=== PATIENT | male | born 1960 | race Caucasian/White ===

== ENCOUNTER → 2016-10-02 | Day surgery (SDC) | payer OTHER, MEDICAID ==
[~2016-10-02] MED LIST: IOPAMIDOL (ISOVUE-M 300) 15 ML VIAL IV ONE; MIDAZOLAM 2 MG/2 ML VIAL ONE; TRIAMCINOLONE ACETONIDE 200 MG/5 ML MDV IM ONE; fentaNYL 100 MCG/2 ML INJ ONE; oxyCODONE IR 15 MG TAB PO ONE
--- NOTE | 2016-10-02 19:52 | IR ---
Lumbar epidural steroid injection History: Back pain, scoliosis, fusion surgery. Consent: Risks and benefits of the procedure were discussed in detail, and informed consent was obta ined. Medications: Intravenous conscious sedation and analgesia were given under my supervision. Vital sign s, pulse oximetry, and electrocardiogram were monitored. The patient received 2 milligrams of Versed and 100 micrograms of fentanyl intravenously. Technique: With the patient prone, the low back was prepped and draped in sterile fashion. 1% Xyloca ine was used for local anesthetic. Using multiplanar fluoroscopic guidance, an 18-gauge Touhy needle was inserted into the back of the spinal canal via the L3-L4 interlaminar space. Epidural position wa s confirmed with 2 mL of Isovue-M 300. Spot images were obtained before and after injection of 2 mL o f Kenalog (80 mg) and 3 mL of preservative-free 1% Xylocaine. After a brief observation, the patient was allowed to leave the department. Fluoroscopy time: 0.7 minutes. Estimated exposure in milliGray: 32.4. Epidurogram: Eccentric leftward epidural contrast is found at L3-L4. Scoliosis and mature multilevel fusion are similar to previous images of July 27, 2015, and November 24, 2014. Impression: Lumbar epidural injection of long-acting steroid and rapid-acting anesthetic via L3-L4. - - - - - - - - - - - - - - - - - - - - - - - - - - - - - - - - - - - - - - - - - - - - (PQRS Measures: Current medications were listed in the medical record, including all known prescript ions, [id number] medications, herbal medications, and nutritional supplements. Tobacco Use: Non e. The patient quit smoking 8 months ago. Prophylactic antibiotic: Unnecessary. VTE prophylaxis: Unnecessary.)
== END | disposition home or self-care (01) ==
LOC: FIMAGING 11:56
PROVIDERS: ATTEND Clinical Nurse Specialist
PROC: 3E0S33Z Introduction of Anti-inflammatory into Epidural Space, Percutaneous Approach (ICD-10-PCS; principal; 2016-10-02 13:43)
DX: M51.36 Other intervertebral disc degeneration, lumbar region (principal); Z98.1 Arthrodesis status; Z87.891 Personal history of nicotine dependence; Z21 Asymptomatic human immunodeficiency virus [HIV] infection status
CPT/HCPCS: J2250; J3010; J3301; Q9967

== ENCOUNTER 2017-11-18 12:10 | Day surgery (SDC) | payer OTHER, MEDICAID ==
[2017-11-18] MEDS ORDERED: MEPERIDINE 25 MG/ML SYR IVP PRN (12:38)
[2017-11-18] MEDS ORDERED: MIDAZOLAM 2 MG/2 ML VIAL IVP PRN (12:38)
[2017-11-18] MEDS ORDERED: NALOXONE HCL 0.4 MG/ML INJ IVP PRN (12:38)
[2017-11-18] MEDS ORDERED: FLUMAZENIL 0.5 MG/5 ML MDV IVP PRN (12:38)
[2017-11-18] MEDS ORDERED: ALTEPLASE 2 MG VIAL IVP PRN (12:38)
[2017-11-18] MEDS ORDERED: GLUCAGON HCL 1 MG VIAL IVP PRN (12:38)
[2017-11-18] MEDS ORDERED: fentaNYL 100 MCG/2 ML INJ IVP PRN (12:38)
[2017-11-18] MEDS ORDERED: PROTAMINE SULFATE 50 MG/5 ML VIAL IVP PRN (12:38)
[2017-11-18] MEDS ORDERED: HEPARIN 10,000 UNIT/10 ML MDV (1,000 UNIT/ML) IVP PRN (12:38)
[2017-11-18] MEDS ORDERED: NS 1,000 ML IV SCH (12:45)
[2017-11-18] MEDS ORDERED: IOPAMIDOL (ISOVUE-M 300) 15 ML VIAL ONE (13:04)
[2017-11-18] MEDS ORDERED: TRIAMCINOLONE ACETONIDE 200 MG/5 ML MDV IM ONE (13:04)
--- NOTE | 2017-11-18 13:13 | PDPROPOC ---
Sedation Plan of Care Sedation Plan of Care: vital signs stable, mental status noted, patient educated of risks, benefits, alternatives, patient can tolerate sedation ASA Classification: ASA 2 Planned drugs: fentanyl, midazolam Mallampati Score: Class 1 Mallampati Reference Image: Patient passed 3-3-2 rule?: Yes
--- NOTE | 2017-11-18 13:16 | PDGENHP ---
History & Physical Chief Complaint: RECURRENT LBP History of Present Illness: HAS BACK INJECTIONS ABOUT Q4 MONTHS Pertinent Past, Social, Family History: CONTINUED LBP, HIV POSITIVE Relevant Physical Exam: IN NO DISTRESS. Cardiorespiratory Assessment: RRR, CTA
[2017-11-18 13:56] VITALS: PULSE 102; RESP 16
[2017-11-18 14:15] VITALS: TEMP 97.5
[2017-11-18 14:48] VITALS: BP 102/74; O2SAT 93
[2017-11-18] MEDS ORDERED: LIDOCAINE 1% 300 MG/30 ML SDV ONE (15:29)
== END 2017-11-18 15:19 | disposition home or self-care (01) ==
LOC: FIMAGING 12:10
PROVIDERS: ATTEND Registered Nurse
PROC: 3E0S33Z Introduction of Anti-inflammatory into Epidural Space, Percutaneous Approach (ICD-10-PCS; principal; 2017-11-18 13:25)
DX: M54.5 Low back pain (principal); Z21 Asymptomatic human immunodeficiency virus [HIV] infection status
CPT/HCPCS: J2250; J2310; J3010; J3301; Q9967

== ENCOUNTER → 2018-11-04 | Outpatient (CLI) | payer OTHER, MEDICAID | LOC: BMCIMAGING 14:42 | PROVIDERS: ATTEND Physician Assistant | DX: Z13.820 Encounter for screening for osteoporosis (principal); Z96.642 Presence of left artificial hip joint; M81.0 Age-related osteoporosis without current pathological fracture ==